=== PATIENT | female | born 1950 | race Caucasian/White ===

== ENCOUNTER → 2018-02-17 | Outpatient (CLI) | payer MEDICARE ==
[2018-02-17] MEDS: IOHEXOL 240 MG/ML 50ML VIAL. PO (08:05)
[2018-02-17] MEDS: IOHEXOL 300 MG/ML 100ML VIAL. IV (09:04)
== END | disposition home or self-care (01) ==
LOC: KCIC CT 08:11
DX: K42.9 Umbilical hernia without obstruction or gangrene (principal); M17.0 Bilateral primary osteoarthritis of knee; M47.896 Other spondylosis, lumbar region; I10 Essential (primary) hypertension; Z87.891 Personal history of nicotine dependence
CPT/HCPCS: 73562; 74170; Q9966; Q9967

== ENCOUNTER 2018-02-26 08:55 | Day surgery (SDC) | payer MEDICARE ==
[2018-02-26] MEDS: IV RINGERS,LACTATED 1000ML 1,000 ML IV (07:00)
[~2018-02-26 08:55] MED LIST: LIDOCAINE 1% PF 2 ML VIAL. ID; MORPHINE SULFATE 4 MG/ML DISP.SYRIN. IV; ONDANSETRON PF 4 MG/2 ML VIAL. IV; ceFAZolin 2GM PREMIX 2 GM/50 ML BAG IV; fentaNYL PF VIAL 100 MCG/2 ML VIAL IV
[2018-02-26] MEDS ORDERED: ONDANSETRON PF 4 MG/2 ML VIAL. (09:56)
[2018-02-26] MEDS ORDERED: ROCURONIUM 50 MG/5 ML VIAL. (09:56)
[2018-02-26] MEDS ORDERED: LIDOCAINE 2% PF Vial for OR 5 ML VIAL. (09:56)
[2018-02-26] MEDS ORDERED: fentaNYL PF VIAL 250 MCG/5 ML VIAL (09:56)
[2018-02-26] MEDS ORDERED: PROPOFOL 20 ML IV (09:56)
[2018-02-26] MEDS ORDERED: DEXAMETHASONE SOD PHOS 20 MG/5 ML VIAL. (09:56)
[2018-02-26] MEDS: BUPIVACAINE-EPI 0.25%-1:200000 50 ML VIAL. (10:31)
[2018-02-26] MEDS ORDERED: NEOSTIGMINE METHYLSULFATE 5 MG/5 ML SYRINGE. (10:57)
[2018-02-26] MEDS ORDERED: SEVOFLURANE 61 TO 120 MINUTES. IH (10:57)
[2018-02-26] MEDS ORDERED: GLYCOPYRROLATE 1 MG/5 ML VIAL. ×2 (10:57)
[2018-02-26] MEDS: fentaNYL PF VIAL 100 MCG/2 ML VIAL IV ×3 (11:33→11:54)
[2018-02-26] MEDS: PROCHLORPERAZINE 10 MG/2 ML VIAL. IV (11:44)
[2018-02-26] MEDS ORDERED: ALBUTEROL SULFATE 2.5 MG/3 ML NEBU. (12:07)
[2018-02-26] MEDS: ALBUTEROL SULFATE 2.5 MG/3 ML NEBU. NEB (12:14)
[2018-02-26] MEDS ORDERED: MEPERIDINE PF 25 MG/ML VIAL. (12:34)
[2018-02-26] MEDS: MEPERIDINE PF 25 MG/ML VIAL. IV ×4 (13:08→13:45)
[2018-02-26] MEDS: oxyCODONE/APAP 5/325 1 TAB TABLET PO (13:10)
== END 2018-02-26 14:02 | disposition home or self-care (01) ==
LOC: SURG 08:55
DX: K43.6 Other and unspecified ventral hernia with obstruction, without gangrene (principal); I10 Essential (primary) hypertension; E78.00 Pure hypercholesterolemia, unspecified; J43.9 Emphysema, unspecified; E66.9 Obesity, unspecified; Z68.34 Body mass index [BMI] 34.0-34.9, adult; F17.210 Nicotine dependence, cigarettes, uncomplicated; Z90.49 Acquired absence of other specified parts of digestive tract; Z90.710 Acquired absence of both cervix and uterus; Z79.899 Other long term (current) drug therapy; Z80.8 Family history of malignant neoplasm of other organs or systems; Z82.49 Family history of ischemic heart disease and other diseases of the circulatory system; Z88.1 Allergy status to other antibiotic agents; Z88.5 Allergy status to narcotic agent; Z88.8 Allergy status to other drugs, medicaments and biological substances; Z98.890 Other specified postprocedural states; Z90.79 Acquired absence of other genital organ(s); Z90.722 Acquired absence of ovaries, bilateral; M19.90 Unspecified osteoarthritis, unspecified site
CPT/HCPCS: 49653; C1781; J0690; J0780; J1100; J2175; J2405; J2704; J2710; J3010; J3490; J7613